=== PATIENT | male | born 1995 | race Caucasian/White ===

== ENCOUNTER 2017-02-27 16:29 | Outpatient (CLI) | payer BC ==
[2013-08-19 12:09] VITALS: BP 108/68
[2017-02-27 17:09] LABS: BASOPHILS % 1.1 (0.0-1.5); EOSINOPHILS % 3.8 % (0.0-6.8); MEAN CORPUSCULAR HEMOGLOBIN 29.3 pg (28.0-34.0); MEAN CORPUSCULAR VOLUME 86.3 fl (80.0-100.0); MONOCYTES % 4.3 % (0.0-11.0); NEUTROPHILS # 3.5 # k/uL (1.4-7.7)
[2017-02-27 17:33] LABS: eGFR (African) > 60; eGFR (Non-African) > 60
== END 2017-02-27 16:35 ==
LOC: LAB 16:29
PROVIDERS: ATTEND Nurse Practitioner Psychiatric/Mental Health
DX: Z79.899 Other long term (current) drug therapy (principal)
CPT/HCPCS: 36415; 80053; 80061; 83036; 84439; 84443; 84481; 85025